=== PATIENT | male | born 1980 | race Caucasian/White ===

== ENCOUNTER → 2020-02-08 20:07 | Outpatient (CLI) | payer OTHER, SELFPAY ==
[2020-02-08 20:46] LABS: Influenza A - CEPHEID Flu A NEGATIVE (NEGATIVE); Influenza B - CEPHEID Flu B NEGATIVE (NEGATIVE)
== END ==
PROVIDERS: Visit Provider Physician Assistant
DX: R05 Cough (principal); R68.89 Other general symptoms and signs
CPT/HCPCS: 87502

== ENCOUNTER → 2020-02-12 17:56 | Outpatient (CLI) | payer OTHER, SELFPAY ==
--- NOTE | 2020-02-12 17:59 | DI.RAD.S_ITS ---
PROCEDURE: XR CHEST 2V INDICATIONS: Cough, SOB TECHNIQUE: 2 views of the chest were acquired. COMPARISON: None. FINDINGS: Surgical changes and devices: None. Lungs and pleura: Lungs are clear. No pleural effusions or pneumothorax. Mediastinum: Mediastinal contours are normal. Heart size is normal. Bones and chest wall: No suspicious bony abnormalities. Soft tissues appear unremarkable. IMPRESSION: No evidence acute pulmonary process. Dictated by: Florentin Bennett M.D. on 02/12/2020 at 18:25 Approved by: Florentin Bennett M.D. on 02/12/2020 at 18:25
[2020-02-18 08:35] LABS: COVID19 Sendout Not Detected (Not Detected)
== END ==
PROVIDERS: Referring Provider Nurse Practitioner; Visit Provider Nurse Practitioner
DX: R05 Cough (principal); R06.02 Shortness of breath
CPT/HCPCS: 71046; 87635